=== PATIENT | male | born 2000 | race African-American/Black ===

== ENCOUNTER 2024-01-29 22:40 | Emergency (ER) | payer SELFPAY ==
[~2024-01-29] VITALS: Ht 175.3 cm; Wt 69.0 kg
[2024-01-29 23:11] VITALS: BP 146/72; PULSE 63; RESP 16; TEMP 97.7; O2SAT 100
[2024-01-29] MEDS ORDERED: SODIUM CHLORIDE 0.9% 1,000 ML IV ONE (23:45)
== END 2024-01-30 00:20 | disposition left against medical advice (07) ==
LOC: ER 22:40
DX: T50.901A Poisoning by unspecified drugs, medicaments and biological substances, accidental (unintentional), initial encounter (principal); F17.200 Nicotine dependence, unspecified, uncomplicated; F15.90 Other stimulant use, unspecified, uncomplicated; F19.90 Other psychoactive substance use, unspecified, uncomplicated; Y92.89 Other specified places as the place of occurrence of the external cause
CPT/HCPCS: 99281; J7030